=== PATIENT | female | born 1975 | race Caucasian/White ===

== ENCOUNTER → 2016-10-25 | Outpatient (CLI) | payer BC ==
[~2016-10-25] MED LIST: DIFLUCAN150 MG PO; FLEXERIL10 MG PO; Fioricet 325 MG1 TAB PO; HYDROCODONE BIT1 T11 PO; LEVAQUIN250 MG PO; MAXALT10 MG PO; MOTRIN800 MG PO; PERCOCET 325 MG1 TA3 PO; PRILOSEC20 MG PO; TORADOL10 MG PO; ZOFRAN ODT4 MG SL; ZOFRAN4 MG PO
== END | disposition home or self-care (01) ==
LOC: CT 11:48
DX: R31.0 Gross hematuria (principal); R10.2 Pelvic and perineal pain; R10.9 Unspecified abdominal pain

== ENCOUNTER → 2016-10-26 | Outpatient (CLI) | payer BC | END | disposition home or self-care (01) | LOC: US 10:56 | DX: R10.2 Pelvic and perineal pain (principal) ==

== ENCOUNTER → 2016-11-01 | Outpatient (CLI) | payer BC | END | disposition home or self-care (01) | LOC: MRI 07:47 | DX: M54.5 Low back pain (principal); R20.2 Paresthesia of skin ==

== ENCOUNTER → 2018-01-30 | Outpatient (CLI) | payer BC | END | disposition home or self-care (01) | LOC: US 08:24 | DX: N28.1 Cyst of kidney, acquired (principal); K76.89 Other specified diseases of liver ==

== ENCOUNTER 2018-02-21 09:35 | Emergency (ER) | payer BC ==
[~2018-02-21] VITALS: Ht 154.9 cm; Wt 48.5 kg
[2018-02-21 10:03] LABS: BASO % 0.3 % (0.0-1.0); EOS % 0.3 % (1.0-4.0); HEMATOCRIT 40.8 % (37.0-47.0); HEMOGLOBIN 13.9 g/dl (12.0-16.0); LYMPH # 1.7 10*3/uL (1.3-4.4); LYMPH % 25.5 % (27.0-41.0); MEAN CELL VOLUME 92.7 fl (81.0-99.0); MEAN CORPUSCULAR HGB 31.6 pg (27.0-31.0); MEAN CORPUSCULAR HGB CONC 34.1 g/dl (33.0-37.0); MEAN PLATELET VOLUME 9.4 fl (9.6-12.3); MONO # 0.3 10*3/uL (0.1-1.0); MONO % 5.3 % (3.0-9.0); NEUT # 4.4 10*3/uL (2.3-7.9); NEUT % 68.4 % (47.0-73.0); PLATELET COUNT AUTOMATED 329 10*3/uL (130-400); RED CELL DISTRI WIDTH 12.6 % (0-14.5); WHITE BLOOD COUNT 6.5 10*3/uL (4.8-10.8)
[2018-02-21 10:19] LABS: ALKALINE PHOSPHATASE 49 U/L (45-117); BUN 15 mg/dl (7-24); CHLORIDE 105 mmol/L (98-107); CREATININE 0.74 mg/dL (0.55-1.02); LIPASE 117 U/L (73-393); POTASSIUM 3.7 mmol/L (3.5-5.1); SGOT/AST 51 IU/L (3-35); SGPT/ALT 106 U/L (12-78); SODIUM 139 mmol/L (136-145); TOTAL PROTEIN 7.9 gm/dL (6.4-8.2)
[2018-02-21 10:25] LABS: BILIRUBIN NEGATIVE (NEGATIVE); BLOOD TRACE-INTACT (NEGATIVE); CLARITY SL CLOUDY (CLEAR); COLOR YELLOW (YELLOW); GLUCOSE NEGATIVE (NEGATIVE); KETONE NEGATIVE (NEGATIVE); LEUKO ESTERASE TRACE (NEGATIVE); NITRITE NEGATIVE (NEGATIVE); UROBILINOGEN 0.2 E.U./dl (0.2-1.0)
[2018-02-21 10:56] LABS: BACTERIA 3+
== END 2018-02-21 11:49 | disposition home or self-care (01) ==
LOC: ED 09:35
PROVIDERS: Nurse Practitioner Family
DX: R10.32 Left lower quadrant pain (principal); R10.12 Left upper quadrant pain; R03.0 Elevated blood-pressure reading, without diagnosis of hypertension; K21.9 Gastro-esophageal reflux disease without esophagitis; Z98.890 Other specified postprocedural states

== ENCOUNTER 2018-05-05 22:23 | Inpatient (IN) | payer BC ==
[~2018-05-05] VITALS: Ht 154.9 cm; Wt 47.3 kg
--- NOTE | ~2018-05-05 | EKG ---
[place], [place] ELECTROCARDIOGRAM REPORT NAME: PAO MARTINEZ UNIT #: [id number] ROOM: 401 DOCTOR: NACHO DRAFT REPORT BIRTHDATE: [birth year] [facility] Test Date: 2018-05-05 Test Time: 23:11:45 Pat Name: PAO MARTINEZ Department: ED Room: 401 Gender: F Metrology Technician: : 1975 Requested By: FAWN GARCIA PA-C Order Number: [id number] Reading MD: Tony Devine MD Measurements Intervals [place] Rate: 83 P: 74 RI: 141 QRS: 55 QRSD: 92 T: 58 QT: 378 QTc: 445 Interpretive Statements Sinus rhythm Electronically Signed On 05-06-2018 10:21:17 PDT by Tony Devine MD CM:EKGRPT:ELECTROCARDIOGRAM REPORT 2311 1021 FAWN GARCIA PA-C EPIPHANY DRAFT REPORT FAWN GARCIA PA-C
[2018-05-05 22:26] VITALS: BP 130/90
[2018-05-05 23:30] LABS: BASO % 0.4 % (0.0-1.0); EOS # 0.1 10*3/uL (0.0-0.4); EOS % 1.2 % (1.0-4.0); HEMOGLOBIN 12.7 g/dl (12.0-16.0); LYMPH # 1.7 10*3/uL (1.3-4.4); LYMPH % 34.4 % (27.0-41.0); MEAN CELL VOLUME 91.6 fl (81.0-99.0); MEAN CORPUSCULAR HGB 31.4 pg (27.0-31.0); MEAN CORPUSCULAR HGB CONC 34.3 g/dl (33.0-37.0); MEAN PLATELET VOLUME 9.8 fl (9.6-12.3); MONO # 0.3 10*3/uL (0.1-1.0); MONO % 6.2 % (3.0-9.0); NEUT # 2.8 10*3/uL (2.3-7.9); NEUT % 57.6 % (47.0-73.0); PLATELET COUNT AUTOMATED 259 10*3/uL (130-400); RED BLOOD COUNT 4.04 10*6/uL (4.10-5.10); RED CELL DISTRI WIDTH 11.9 % (0-14.5); WHITE BLOOD COUNT 4.8 10*3/uL (4.8-10.8)
[2018-05-05 23:40] LABS: INTERNATIONAL NORM RATIO 1.1 (2.0-3.5)
[2018-05-05 23:49] LABS: ALBUMIN 3.8 gm/dl (3.1-4.5); ALKALINE PHOSPHATASE 48 U/L (45-117); BUN 12 mg/dl (7-24); CHLORIDE 107 mmol/L (98-107); CREATININE 0.83 mg/dL (0.55-1.02); LIPASE 181 U/L (73-393); POTASSIUM 4.1 mmol/L (3.5-5.1); SGOT/AST 9 IU/L (3-35); SGPT/ALT 15 U/L (12-78); SODIUM 140 mmol/L (136-145); TOTAL PROTEIN 7.3 gm/dL (6.4-8.2)
[2018-05-05 23:50] LABS: TROPONIN I < 0.015 ng/ml (<0.045)
[2018-05-06 01:00] VITALS: BP 128/83
[2018-05-06 02:21] VITALS: BP 114/82
[2018-05-06 04:00] VITALS: BP 103/59; BP 107/69
[2018-05-06 06:06] LABS: BUN 8 mg/dl (7-24); CHLORIDE 110 mmol/L (98-107); CHOLESTEROL 125 mg/dL (<200); FREE T4 1.07 ng/dl (0.76-1.46); HDL CHOLESTEROL 42 mg/dl (40-60); LDL CHOLESTEROL 69 mg/dL (9-159); PHOSPHOROUS 3.2 mg/dL (2.5-4.9); POTASSIUM 3.4 mmol/L (3.5-5.1); SODIUM 142 mmol/L (136-145); TRIGLYCERIDES 68 mg/dl (<150); VLDL CHOLESTEROL 14 mg/dL (6-40)
[2018-05-06 06:22] LABS: BASO % 0.4 % (0.0-1.0); EOS % 0.4 % (1.0-4.0); HEMATOCRIT 35.6 % (37.0-47.0); HEMOGLOBIN 12.1 g/dl (12.0-16.0); LYMPH # 1.5 10*3/uL (1.3-4.4); LYMPH % 33.1 % (27.0-41.0); MEAN CELL VOLUME 91.5 fl (81.0-99.0); MEAN CORPUSCULAR HGB 31.1 pg (27.0-31.0); MEAN PLATELET VOLUME 9.9 fl (9.6-12.3); MONO # 0.3 10*3/uL (0.1-1.0); MONO % 7.1 % (3.0-9.0); NEUT # 2.7 10*3/uL (2.3-7.9); NEUT % 58.8 % (47.0-73.0); PLATELET COUNT AUTOMATED 260 10*3/uL (130-400); RED BLOOD COUNT 3.89 10*6/uL (4.10-5.10); WHITE BLOOD COUNT 4.7 10*3/uL (4.8-10.8)
[2018-05-06 06:49] LABS: TROPONIN I < 0.015 ng/ml (<0.045)
[2018-05-06 08:00] VITALS: BP 122/62
[2018-05-06 12:00] VITALS: BP 111/76
[2018-05-06 16:00] VITALS: BP 115/82
[2018-05-15] MEDS ORDERED: MAXALT10 MG PO (09:34)
[2018-05-15] MEDS ORDERED: ATIVAN0.5 MG PO (09:35)
[2018-05-15] MEDS ORDERED: PRILOSEC20 M1 PO (09:35)
== END 2018-05-06 17:50 | disposition home or self-care (01) | DRG 313 ==
LOC: ED 22:23 → EDHOLD 05-06 01:29 → 4E 05-06 01:29
PROVIDERS: Physician Assistant; Student in an Organized Health Care Education/Training Program
DX: R07.9 Chest pain, unspecified (principal); E87.8 Other disorders of electrolyte and fluid balance, not elsewhere classified; E87.6 Hypokalemia; F41.1 Generalized anxiety disorder; I49.9 Cardiac arrhythmia, unspecified; R00.2 Palpitations; K21.9 Gastro-esophageal reflux disease without esophagitis; E55.9 Vitamin D deficiency, unspecified; I49.3 Ventricular premature depolarization; N80.9 Endometriosis, unspecified; G43.909 Migraine, unspecified, not intractable, without status migrainosus; Z82.49 Family history of ischemic heart disease and other diseases of the circulatory system; Z90.49 Acquired absence of other specified parts of digestive tract; Z98.51 Tubal ligation status

== ENCOUNTER → 2021-12-21 | Outpatient (CLI) | payer BC ==
[~2021-12-21] MED LIST changes: +ATIVAN0.5 MG PO; +PRILOSEC20 M1 PO
== END | disposition home or self-care (01) ==
LOC: US 10:29
PROVIDERS: ATTEND Family Medicine
DX: D25.9 Leiomyoma of uterus, unspecified (principal)

== ENCOUNTER 2022-03-30 09:11 | Emergency (ER) | payer BC ==
[2022-03-30] MEDS ORDERED: NAPROXEN250 MG PO (09:34)
[2022-03-30] MEDS ORDERED: TYLENOL325 M1 PO (09:34)
== END 2022-03-30 13:33 | disposition left against medical advice (07) ==
LOC: ED 09:11
DX: J02.9 Acute pharyngitis, unspecified (principal); Z53.21 Procedure and treatment not carried out due to patient leaving prior to being seen by health care provider

== ENCOUNTER → 2022-11-27 | Outpatient (CLI) | payer BC ==
[~2022-11-27] MED LIST changes: +NAPROXEN250 MG PO; +TYLENOL325 M1 PO
[2022-11-27 09:15] LABS: ALKALINE PHOSPHATASE 50 U/L (46-116); BUN 11 mg/dl (9-23); CHLORIDE 104 mmol/L (98-107); POTASSIUM 3.6 mmol/L (3.4-5.1); SGPT/ALT 17 U/L (10-49); TOTAL PROTEIN 7.9 gm/dL (6.0-8.0)
== END | disposition home or self-care (01) ==
LOC: LAB 08:30
PROVIDERS: ATTEND Family Medicine
DX: T78.1XXA Other adverse food reactions, not elsewhere classified, initial encounter (principal); X58.XXXA Exposure to other specified factors, initial encounter